=== PATIENT | male | born 1975 | race Caucasian/White ===

== ENCOUNTER 2017-01-08 16:29 | Emergency (ER) | payer BC ==
[~2017-01-08] VITALS: Ht 185.4 cm; Wt 96.8 kg
[2017-01-08 16:35] VITALS: BP 135/84
[2017-01-08] MEDS ORDERED: SUBOXONE 8 MG-1 EAC2 SL (16:44)
== END 2017-01-08 18:09 | disposition home or self-care (01) ==
LOC: EME 16:29
DX: S20.212A Contusion of left front wall of thorax, initial encounter (principal); X58.XXXA Exposure to other specified factors, initial encounter
CPT/HCPCS: 71101; 99281; 99283